=== PATIENT | female | born 1995 | race African-American/Black ===

== ENCOUNTER 2016-11-02 05:57 | Emergency (ER) | payer OTHER ==
[2016-11-02 06:55] VITALS: BP 116/60; PULSE 94; TEMP 98.3; BMI 38.6
[2016-11-02] MEDS ORDERED: IBUPROFEN 400 MG TABLET (FP) PO ONE ×2 (07:42→07:48)
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
== END 2016-11-02 09:03 | disposition home or self-care (01) ==
LOC: JER 05:57
DX: S00.83XA Contusion of other part of head, initial encounter (principal); Y04.2XXA Assault by strike against or bumped into by another person, initial encounter; Y93.89 Activity, other specified; Y92.89 Other specified places as the place of occurrence of the external cause; Y99.8 Other external cause status; Y07.9 Unspecified perpetrator of maltreatment and neglect
CPT/HCPCS: 99283-25